=== PATIENT | female | born 1980 | race Caucasian/White ===

== ENCOUNTER → 2016-05-04 | Outpatient (CLI) | payer OTHER ==
[~2016-05-04] MED LIST: AMPH20TA2 PO; CEPH500C2 PO; PRENTAB26 PO; SERT-234 PO
[2016-05-04 16:51] LABS: BASO % 0.2 %; BASO ABS # 0.02 K/uL (0-0.2); COMPLETE YES; EOS % 1.8 %; HEMATOCRIT 44.4 % (37-47); IG% 0.2 %; LYMPH ABS # 2.72 K/uL (1.2-3.4); MEAN CELL VOLUME 85.5 fL (80-100); MEAN CORPUSCULAR HEMOGLOBIN 29.7 pg (25-34); MEAN CORPUSCULAR HGB CONC 34.7 g/dl (32-36); MEAN PLATELET VOLUME 9.1 fL (7.4-10.4); MONO % 7.5 %; NEUT % 59.3 %; PLATELET COUNT 259 K/uL (130-400); RED BLOOD COUNT 5.19 M/uL (4.2-5.4); WHITE BLOOD COUNT 8.77 K/uL (4.8-10.8)
[2016-05-04 18:49] LABS: ALT/SGPT 37 U/L (12-78); AST/SGOT 19 U/L (15-37); BLOOD UREA NITROGEN 8 mg/dl (7-18); BUN/CREATININE RATIO 12.7 (10-20); CARBON DIOXIDE 27 mmol/L (21-32); CHLORIDE 103 mmol/L (98-107); GLUCOSE 75 mg/dl (70-99); MAGNESIUM 1.9 mg/dl (1.8-2.4); POTASSIUM 3.8 mmol/L (3.5-5.1); SODIUM 138 mmol/L (136-145)
[2016-05-04 19:10] LABS: ALB/GLOB RATIO 1.1 (0.9-2); ALKALINE PHOSPHATASE 88 U/L (45-117)
[2016-05-08 16:03] LABS: HERPES SIMPLEX AB IGG-1 0.12; HERPES SIMPLEX AB IGG-2 >5.00
== END | disposition home or self-care (01) ==
LOC: C.LAB1850 15:55
PROVIDERS: ATTEND Obstetrics & Gynecology
DX: Z01.419 Encounter for gynecological examination (general) (routine) without abnormal findings (principal); R53.83 Other fatigue; Z11.3 Encounter for screening for infections with a predominantly sexual mode of transmission

== ENCOUNTER → 2016-05-04 | Outpatient (CLI) | payer OTHER | END | disposition home or self-care (01) | LOC: C.PAPS 09:28 | PROVIDERS: ATTEND Obstetrics & Gynecology | DX: Z01.419 Encounter for gynecological examination (general) (routine) without abnormal findings (principal) ==

== ENCOUNTER → 2017-07-11 | Outpatient (CLI) | payer OTHER ==
[~2017-07-11] MED LIST changes: -PRENTAB26 PO; -SERT-234 PO
--- NOTE | 2017-07-11 14:08 | DIAGNOSTIC IMAGING REPORT ---
C-SPINE ROUTINE 4 OR 5 VIEWS HISTORY: Pain. Neuropathy. R20.0 Arm [id number] COMPARISON: None. FINDINGS: The cervical spine is visualized from C1 through the superior endplate of T1. There is no fracture. No subluxation. Moderate degenerative disc change C5-C7. Mild reactive sclerosis vertebral endplates C5-C6 level. Minimal osteophytic narrowing of the neuroforamina bilaterally at C5-C6 and to a lesser extent C6-C7. Prevertebral soft tissues and the atlantodens interval are intact. IMPRESSION: Mild/moderate degenerative disc change C5-C7. Mild straightening of the cervical curvature. Otherwise negative study. The above report was generated using voice recognition software. It may contain grammatical, syntax or spelling errors. Electronically signed by: Tucker Rivera M.D. 07/11/2017 2:06 PM Dictated Date/Time: 07/11/2017 2:05 PM
== END | disposition home or self-care (01) ==
LOC: C.RAD1850 13:49
PROVIDERS: ATTEND Physician Assistant
DX: R20.0 Anesthesia of skin (principal)

== ENCOUNTER → 2017-08-03 | Outpatient (CLI) | payer OTHER ==
[2017-08-03 09:21] LABS: BASO % 0.5 %; BASO ABS # 0.04 K/uL (0-0.2); EOS % 2.3 %; EOS ABS # 0.17 K/uL (0-0.5); HEMATOCRIT 43.1 % (37-47); HEMOGLOBIN 14.5 g/dL (12.0-16.0); IG# 0.02 K/uL (0.00-0.02); LYMPH % 40.5 %; MEAN CELL VOLUME 81.9 fL (80-100); MEAN CORPUSCULAR HEMOGLOBIN 27.6 pg (25-34); MEAN CORPUSCULAR HGB CONC 33.6 g/dl (32-36); MEAN PLATELET VOLUME 8.8 fL (7.4-10.4); MONO % 7.7 %; MONO ABS # 0.57 K/uL (0.11-0.59); NEUT % 48.7 %; NEUT ABS # 3.61 K/uL (1.4-6.5); PLATELET COUNT 350 K/uL (130-400); RED CELL DISTRIBUTION WIDTH CV 14.4 % (11.5-14.5); RED CELL DISTRIBUTION WIDTH SD 42.8 fL (36.4-46.3); WHITE BLOOD COUNT 7.41 K/uL (4.8-10.8)
[2017-08-03 09:48] LABS: HEMOGLOBIN A1C 5.9 % (4.5-5.6)
[2017-08-03 09:51] LABS: ALT/SGPT 46 U/L (12-78); BLOOD UREA NITROGEN 10 mg/dl (7-18); CALCIUM 8.9 mg/dl (8.5-10.1); CARBON DIOXIDE 24 mmol/L (21-32); CHOLESTEROL 177 mg/dl (0-200); CREATININE 0.76 mg/dl (0.60-1.20); GLUCOSE 100 mg/dl (70-99); POTASSIUM 3.7 mmol/L (3.5-5.1); SODIUM 136 mmol/L (136-145)
[2017-08-03 10:00] LABS: ALKALINE PHOSPHATASE 93 U/L (45-117); AST/SGOT 26 U/L (15-37); LDL CHOLESTEROL CALCULATED 114 mg/dl; TOTAL PROTEIN 7.7 gm/dl (6.4-8.2); TRANSFERRIN 358 mg/dl (200-360)
== END | disposition home or self-care (01) ==
LOC: C.LAB1850 08:40
PROVIDERS: ATTEND Physician Assistant
DX: Z00.00 Encounter for general adult medical examination without abnormal findings (principal); E55.9 Vitamin D deficiency, unspecified; R53.83 Other fatigue

== ENCOUNTER → 2017-11-19 | Day surgery (SDC) | payer OTHER ==
[~2017-11-19] VITALS: Ht 160 cm; Wt 76.8 kg
[~2017-11-19] MED LIST changes: +ASA PO; -CEPH500C2 PO; +CYCL5TAB PO; +LEVO50TA6 PO; +LIDOCAINE HCL 2% 2 ML VIAL (20MG/ML) ONE; +MULT-513 PO; +PROPOFOL IV EMULSION 10 MG/ML 20 ML VIAL ONE; +SERT-234 PO; +SODIUM CHLORIDE 0.9% 500ML 500 ML IV ONE; +TRAZ100T29 PO
[2017-11-19 12:48] VITALS: Ht 160 cm; Wt 76.8 kg
--- NOTE | 2017-11-19 13:00 | Endo History and Physical ---
History & Physical Date of Service: Nov 19, 2017. Chief Complaint: NAUSEA AND VOMITING Referring Physician: MICHAEL KUHN History of Present Illness 37 yo CF who presents for EGD secondary to nausea and vomiting. Past Medical History Anxiety, Reflux Past Surgical History Hx Cardiac Surgery: No Hx Internal Defibrillator: No Hx Pacemaker: No Hx Abdominal Surgery: Yes (GASTRIC BYPASS) Hx of Implantable Prosthesis: No Hx Post-Op Nausea and Vomiting: No Hx Cancer Surgery: No Hx Thoracic Surgery: No Hx Orthopedic: Yes (LT ACL/MCL REPAIR) Hx Urinary Tract Surgery: No Family History Colon CA Social History Smoking Status: Current Every Day Smoker Hx Substance Use: No Hx Alcohol Use: Yes (SOCIALLY) Allergies Coded Allergies: No Known Allergies (Unverified , 11/19/17) Current Medications Reported Home Medications Medications Dose Route/Sig Max Daily Dose Days Date Category Flexeril (Cyclobenzaprine Hcl) 5 Mg Tab 1 Tab PO PRN 30 11/19/17 Reported Trazodone (Trazodone HCl) 100 Mg Tab 100 Mg PO PRN 11/19/17 Reported [Asa] 325 PO RARELY 11/19/17 Reported Mvi With Minerals (Multivitamins/Minerals) Tab 1 Tab PO DAILY 11/19/17 Reported Levothyroxine Sodium 50 Mcg Tab 1 Tab PO DAILY 10/19/17 Reported Zoloft (Sertraline HCl) 100 Mg Tab 150 Mg PO DAILY 10/19/17 Reported Adderall 20MG (Amphetamine-Dextroamphetamine 20MG) 1 Tab Tab 1 Tab PO TID 30 03/04/15 Reported Vital Signs Weight (Kilograms): 76.82 Height (Feet): 5 Height (Inches): 3 Date Time Temp Pulse Resp B/P (MAP) Pulse Ox O2 Delivery O2 Flow Rate FiO2 11/19/17 12:56 36.7 95 20 122/87 (99) 97 Room Air Physical Exam General Appearance: WD/WN, no apparent distress Respiratory/Chest: Auscultation: breath sounds normal Cardiovascular: Heart Auscultation: RRR Abdomen: Bowel Sounds: normal Inspection & Palpation: soft, non-distended, no tenderness, guarding & rebound Assessment and Plan Assessment: 37 yo CF who presents for EGD secondary to nausea and vomiting. Plan: Proceed with EGD.
--- NOTE | 2017-11-19 14:13 | Discharge Instructions ---
Endoscopy Patient Instructions Date / Procedure(s) Performed Nov 19, 2017. EGD Allergy Information Coded Allergies: No Known Allergies (Unverified , 11/19/17) Discharge Date / Findings Nov 19, 2017. Ulcers at Gastrojejunal anastomosis Medication Instructions 1) Prilosec 20mg: Open capsule and empty into applesauce and take by mouth each morning. 2) OK to resume all medications today as prescribed Reported Home Medications Medications Dose Route/Sig Max Daily Dose Days Date Category Flexeril (Cyclobenzaprine Hcl) 5 Mg Tab 1 Tab PO PRN 30 11/19/17 Reported Trazodone (Trazodone HCl) 100 Mg Tab 100 Mg PO PRN 11/19/17 Reported [Asa] 325 PO RARELY 11/19/17 Reported Mvi With Minerals (Multivitamins/Minerals) Tab 1 Tab PO DAILY 11/19/17 Reported Levothyroxine Sodium 50 Mcg Tab 1 Tab PO DAILY 10/19/17 Reported Zoloft (Sertraline HCl) 100 Mg Tab 150 Mg PO DAILY 10/19/17 Reported Adderall 20MG (Amphetamine-Dextroamphetamine 20MG) 1 Tab Tab 1 Tab PO TID 30 03/04/15 Reported Provider Instructions Activity Restrictions - No exercising or heavy lifting for 24 hours. - Do not drink alcohol the day of the procedure. - Do not drive a car or operate machinery until the day after the procedure. - Do not make any important decisions or sign important papers in 24 hours after the procedure. Following Day: - Return to full activity which may include returning to work/school. Diet Start your diet with liquids and light foods (jello, soup, juice, toast). Then eat your usual diet if not nauseated. Treatment For Common After Affects For mild abdominal pain, bloating, or excessive gas: - Rest - Eat lightly - Lie on right side Follow-Up Information Follow-up with MICHAEL KUHN as scheduled Anesthesia Information What You Should Know You have had a procedure that required some medicine to reduce anxiety and discomfort. This treatment is called moderate sedation. After receiving the treatment, you may be sleepy, but you will be able to breathe on your own. The effects of the treatment may last for several hours. Follow these instructions along with Activity/Diet recommendations noted above: * Do NOT do anything where dizziness or clumsiness would be dangerous. * Rest quietly at home today, then you can be up and about tomorrow. * Have a responsible person stay with you the rest of today. * You may have had an I.V. today. If so, you may take the dressing off later today. Recommendations Call your doctor if: * Trouble breathing * Continuous vomiting for more than 24 hours * Temperature above 101 degrees * Severe abdominal pain or bloating * Pain not relieved by pain medicine ordered * There is increased drainage or redness from any incision * A large amount of rectal bleeding greater than 2-3 tablespoons. (If you had a polyp/s removed or have hemorrhoids, a small amount of blood - from the rectum is to be expected.) * You have any unanswered questions or concerns. IN THE EVENT OF A SERIOUS EMERGENCY, GO TO THE NEAREST EMERGENCY ROOM Your discharge instructions were prepared by provider Param Go. Patient Instructions Signature Page Janey Parada Patient (or Guardian) Signature/Date: I have read and understand the instructions given to me by my caregivers. Caregiver/RN/Doctor Signature/Date: The above-named patient and/or guardian has received patient instructions on this date. + Original Patient Signature Page (only) stays with chart. Please make copy for patient.
--- NOTE | 2017-11-19 14:25 | GI REPORT ---
Patient Name: Janey Parada Procedure Date: 11/19/2017 1:36 PM Date of : 1980 Admit Type: Outpatient Age: 37 Gender: Female Attending MD: Param Go DO Procedure: Upper GI endoscopy Providers: Param Go DO Referring MD: Danielle Kong Indications: Nausea with vomiting Medicines: Monitored Anesthesia Care Complications: No immediate complications. Estimated Blood Loss: Estimated blood loss: none. Procedure: Pre-Anesthesia Assessment: - Prior to the procedure, a History and Physical was performed, and patient medications and allergies were reviewed. The patient's tolerance of previous anesthesia was also reviewed. The risks and benefits of the procedure and the sedation options and risks were discussed with the patient. All questions were answered, and informed consent was obtained. Prior Anticoagulants: The patient has taken no previous anticoagulant or antiplatelet agents. ASA Grade Assessment: II - A patient with mild systemic disease. After reviewing the risks and benefits, the patient was deemed in satisfactory condition to undergo the procedure. After obtaining informed consent, the endoscope was passed under direct vision. Throughout the procedure, the patient's blood pressure, pulse, and oxygen saturations were monitored continuously. The scope was introduced through the mouth, and advanced to the second part of duodenum. The upper GI endoscopy was accomplished without difficulty. The patient tolerated the procedure well. Findings: The esophagus was normal. Evidence of a Ann-en-Y gastrojejunostomy was found. The gastrojejunal anastomosis was characterized by ulceration. This was traversed. The [id number] limb was not examined as it could not be found. Biopsies were taken with a cold forceps for histology. The examined jejunum was normal. Impression: - Normal esophagus. - Ann-en-Y gastrojejunostomy with gastrojejunal anastomosis characterized by ulceration. Biopsied. - Normal examined jejunum. Recommendation: - Resume previous diet. - Await pathology results. - Start Prilosec 20mg: Take 1 capsule and empty contents into applesauce and take by mouth daily. - Return to primary care physician as previously scheduled. Param Go DO 11/19/2017 2:24:44 PM This report has been signed electronically. Note Initiated On: 11/19/2017 1:36 PM Number of Addenda: 0 I attest to the content of the Intraoperative Record and orders documented therein, exceptions below {[id number]}
--- NOTE | 2017-11-19 14:34 | Anesthesiology Progress Note ---
Anesthesia Post Op Note Date & Time Nov 19, 2017 at 14:34 Vital Signs Pain Intensity: 0 Vital Signs Past 12 Hours Date Time Temp Pulse Resp B/P (MAP) Pulse Ox O2 Delivery O2 Flow Rate FiO2 11/19/17 14:22 82 20 141/95 (110) 97 Room Air 11/19/17 14:07 92 18 127/75 (92) 95 Room Air 11/19/17 12:56 36.7 95 20 122/87 (99) 97 Room Air Notes Mental Status: alert / awake / arousable, participated in evaluation Pt Amnestic to Procedure: Yes Nausea / Vomiting: adequately controlled Pain: adequately controlled Airway Patency, RR, SpO2: stable & adequate BP & HR: stable & adequate Hydration State: stable & adequate Anesthetic Complications: no major complications apparent
[2017-11-19 14:37] VITALS: BP 116/76; PULSE 82; O2SAT 97
== END | disposition home or self-care (01) ==
LOC: C.GI 11:36
PROVIDERS: ATTEND Internal Medicine
DX: R11.2 Nausea with vomiting, unspecified (principal); K28.7 Chronic gastrojejunal ulcer without hemorrhage or perforation; K21.9 Gastro-esophageal reflux disease without esophagitis; F41.9 Anxiety disorder, unspecified; Z98.84 Bariatric surgery status; Z80.0 Family history of malignant neoplasm of digestive organs; F17.200 Nicotine dependence, unspecified, uncomplicated; F32.9 Major depressive disorder, single episode, unspecified; Z93.1 Gastrostomy status

== ENCOUNTER 2023-11-02 10:44 | Inpatient (IN) ==
--- NOTE | 2023-11-02 12:19 | Emergency Department Note ---
Impression & Plan Psychosis, Suicidal ideation ED Provider Note ED Provider Note NAME: ORION BAIN AGE:43 SEX: Female : 1980 ARRIVES VIA: Private vehicle INFORMANT: Family ED PROVIDER(s): Leah Molina DO CHIEF COMPLAINT: Mental health evaluation HPI: This is a 43-year-old male presents emergency department with family due to concern for mental health evaluation. Family reports she has not slept in 3 days, will laugh inappropriately, and they are concerned she may be abusing Adderall she is prescribed for her ADD. They states she also has a history of marijuana use and occasional alcohol use. Patient with a long history of ADD, borderline personality disorder, anxiety and depression per father. He states she has intermittently been aggressive and will yell. No prior suicide attempt. On my evaluation here patient refusing to answer questions, is lying in bed with her eyes closed but does not appear to be asleep. PAST MEDICAL HISTORY:See Below PAST SURGICAL HISTORY:See Below FAMILY HISTORY:See Below SOCIAL HISTORY:See Below HOME MEDICATIONS:See Below ALLERGIES:See Below VITALS:See Below PHYSICAL EXAMINATION: GENERAL: alert, well nourished, no distress, non-toxic EYE EXAM: normal conjunctiva, PERRL and EOM's grossly intact NECK: supple, no nuchal rigidity, no adenopathy, non-tender LUNGS: Clear to auscultation. Normal chest wall mechanics, no w/r/r HEART: no murmurs, S1 normal and S2 normal ABDOMEN: abdomen soft, non-tender, normo-active bowel sounds, no masses, no rebound or guarding. SKIN: no rashes, petechiae, orbruising UPPER EXTREMITIES: upper extremities are grossly normal. FROM, nml pulses b/l. LOWER EXTREMITIES: No pitting edema. FROM, nml pulses b/l. NEURO EXAM: Normal sensorium, cranial nerves II-XII grossly intact, normal speech, no facial droop,nogross weakness of arms, no gross weakness of legs. Gross sensation intact. No ataxia. Vital Signs: reviewed and remarkable Differential Diagnosis: mood disorder, suicidal ideation, anxiety, depression, substance abuse, toxidrome, infection, hypoglycemia, electrolyte abnormalities, ICH as well as others were considered. MEDICAL DECISION MAKING: This is a 43 yo with a long history of mental illness. She refused to speak with me. She would intermittently speak with case jcarlos. Father at bedside provided much of the history. Patient with no insight and poor reality testing. She is responding to internal stimuli and admits to suicidal ideation. Labs and urine collected and sent per protocol. She was evaluated by case jcarlos and 302 initiated and upheld by me. Consultation(s): 1550: 302 signed by me. ER Treatment Provided: See below Diagnostics Interpreted By Me: -Laboratory studies: As stated above and show below. Triage Nursing Note Reviewed Prior/Outside Records Reviewed Past Med/Surg History Problem List (Updated 11/03/23 @ 23:50 by Leah Molina, ) Suicidal ideation (Acute) Psychosis (Acute) Insect bite Primary hypertension NAFLD (nonalcoholic fatty liver disease) Cigarette nicotine dependence Prediabetes Obesity (BMI 30.0-34.9) Anastomotic ulcer Iron (Fe) deficiency anemia History of gastric bypass Anxiety and depression (Chronic) GERD (gastroesophageal reflux disease) ADHD (Chronic) Medical History Diverticulosis Osteoarthritis Kidney stones History of gastric ulcer Surgical History History of colonoscopy History of dilatation and curettage History of repair of ACL History of esophagogastroduodenoscopy (EGD) History of wisdom tooth extraction Family History Mother Family history of diabetes mellitus Grandfather (Maternal) Family hx of colon cancer Other No family history of adverse response to anesthesia Denies family history of Ovarian cancer Breast cancer Colorectal cancer Social History Smoking Status: Current every day smoker Tobacco Type: Cigarettes packs per day: 1; Cigarettes Per Day: 20 a day; Second Hand Exposure: No; Do You Dip or Chew Tobacco: No; Hx Alcohol Use: Yes Alcohol type: wine Hx Substance Use: No Preferred Language: Occitan Communication Ability: Effective [place] Sewer Required: No Beliefs That Will Affect Care: None Current Living Situation: Alone Feels Safe at Home: No Is there a partner from a previous relationship who is making you feel unsafe now?: No Gender Identity: Female Assistive Devices: Contacts and Glasses Allergies Allergies Allergy/AdvReac Type Severity Reaction Status Date / Time prednisone Allergy Intermediate Vomiting Verified 10/04/23 15:11 Home Meds Home Medications Medication Instructions Recorded Confirmed dextroamphetamine-amphetamine ER 40 mg PO DAILY 11/03/23 11/03/23 20 mg 24hr capsule,extend release omeprazole 20 mg capsule,delayed 20 mg PO DAILY 11/03/23 11/03/23 release sertraline 100 mg tablet 200 mg PO DAILY 11/03/23 11/03/23 Previous Rx's Medication Instructions Recorded albuterol sulfate 90 mcg/actuation 2 inh inhalation 6XD PRN shortness 10/15/23 aerosol inhaler of breath or wheezing #8.5 grams Results & Data (ED) Vital Signs Vital Signs - 24 hr 11/02/23 11:10 Temperature 37.7 C H Temperature Source Oral Pulse Rate 123 H Respiratory Rate 18 Respiratory Effort / Characteristics Non-Labored Spontaneous Respiratory Depth Normal Respiratory Pattern Regular Blood Pressure 160/88 H Blood Pressure Mean 112 Pulse Oximetry 94 Oxygen Delivery Method Room Air Sepsis Recent Fever Within 48 Hours No Sepsis New/Unexplained Change in Mental Status No Sepsis Action Taken by Nursing No Action Required Laboratory Data 11/02/23 21:10 11/02/23 13:00 Lab Results 11/02/23 11/02/23 11/02/23 Range/Units 13:00 16:18 21:10 WBC Cancelled 13.92 H RBC Cancelled 5.08 Hgb Cancelled 12.9 Hct Cancelled 39.7 MCV Cancelled 78.1 L MCH Cancelled 25.4 MCHC Cancelled 32.5 RDW Std Deviation Cancelled 45.0 RDW Coeff of Marlon Cancelled 16.0 H Plt Count Cancelled 380 MPV Cancelled 9.4 Immature Gran % (Auto) Cancelled 0.4 Neut % (Auto) Cancelled 68.9 Lymph % (Auto) Cancelled 22.5 [place] % (Auto) Cancelled 7.3 Eos % (Auto) Cancelled 0.6 Baso % (Auto) Cancelled 0.3 Neut # (Auto) Cancelled 9.60 H Lymph # (Auto) Cancelled 3.13 [place] # (Auto) Cancelled 1.02 H Eos # (Auto) Cancelled 0.08 Baso # (Auto) Cancelled 0.04 Immature Gran # (Auto) Cancelled 0.05 Absolute Nucleated RBC Cancelled Nucleated RBC % (auto) Cancelled Neutrophils % (Manual) Cancelled Band Neutrophils % Cancelled Lymphocytes % (Manual) Cancelled Prolymphocyte % Cancelled Reactive Lymphs % (Man) Cancelled Monocytes % (Manual) Cancelled Eosinophils % (Manual) Cancelled Basophils % (Manual) Cancelled Metamyelocytes % (Man) Cancelled Myelocytes % (Man) Cancelled Promyelocytes % (Man) Cancelled Blast Cells % (Manual) Cancelled Plasma Cell % (Manual) Cancelled Other Cells % Cancelled Nucleated RBC % Cancelled Neutrophils # (Manual) Cancelled Band Neutrophils # Cancelled Total Absolute Neuts Cancelled Lymphocytes # (Manual) Cancelled Prolymphocyte # Cancelled Reactive Lymphs # Cancelled Total Abs Lymphocytes Cancelled Monocytes # (Manual) Cancelled Eosinophils # (Manual) Cancelled Basophils # (Manual) Cancelled Metamyelocytes # (Man) Cancelled Myelocytes # (Manual) Cancelled Promyelocytes # (Man) Cancelled Blast Cells # (Man) Cancelled Plasma Cell # (Manual) Cancelled Other Cells # Cancelled Nucleated RBCs # (Man) Cancelled Hypersegmented Neuts Cancelled Hyposegmented Neuts Cancelled Hypogranular Neuts Cancelled Large Granular Lymphs Cancelled # Lrg Granular Lymphs Cancelled Hairy Cells Cancelled Smudge Cells Cancelled Toxic Granulation Cancelled Toxic Vacuolation Cancelled Dohle Bodies Cancelled Ness Rods Cancelled Platelet Estimate Cancelled Hypogranular Platelets Cancelled Giant Platelets Cancelled Platelet Satelliting Cancelled RBC Morphology Cancelled Polychromasia Cancelled Hypochromasia Cancelled Poikilocytosis Cancelled Basophilic Stippling Cancelled Anisocytosis Cancelled Microcytosis Cancelled Macrocytosis Cancelled Spherocytes Cancelled Pappenheimer Bodies Cancelled Sickle Cells Cancelled Target Cells Cancelled Tear Drop Cells Cancelled Ovalocytes Cancelled Stomatocytes Cancelled [place] Bodies Cancelled Echinocytes Cancelled Acanthocytes (Spur) Cancelled Rouleaux Cancelled RBC Agglutinates Cancelled Schistocytes Cancelled Sezary Cell Cancelled Sodium 137 (136-145) mmol/L Potassium 3.7 (3.5-5.1) mmol/L Chloride 108 H (98-107) mmol/L Carbon Dioxide 19 L (21-32) mmol/L Anion Gap 10 (3-11) BUN 7 (6-23) mg/dl Creatinine 0.46 L (0.6-1.2) mg/dl Est Cr Clr Drug Dosing Not Reportable Est GFR ( Amer) 143.2 ml/min Est GFR (Non-Af Amer) 123.6 ml/min BUN/Creatinine Ratio 15.2 (10-20) Glucose 83 (70-99(Fasting)) mg/dl Calcium 9.4 (8.6-10.3) mg/dl Total Bilirubin 0.5 (0.2-1.0) mg/dl AST 16 (13-39) U/L ALT 24 (7-52) U/L Alkaline Phosphatase 77 (34-104) U/L Total Protein 7.6 (6.0-8.3) gm/dl Albumin 4.3 (3.4-5.0) gm/dl Globulin 3.3 (2.5-4.0) gm/dl Albumin/Globulin Ratio 1.3 (0.9-2) TSH 1.178 (0.300-4.500) uIu/ml HCG, Qual Negative (Negative) Urine Color Yellow Urine Appearance Clear (Clear) Urine pH 6.5 (4.5-7.5) Ur Specific [place] 1.013 (1.000-1.030) Urine Protein Trace H (Negative) Urine Glucose (UA) Negative (Negative) Urine Ketones 3+ H (Negative) Urine Blood 3+ H (Negative) Urine Nitrite Negative (Negative) Urine Bilirubin Negative (Negative) Urine Urobilinogen Negative (Negative) Ur Leukocyte Esterase Trace H (Negative) Urine WBC (Auto) 0-5 (0-5) /hpf Urine RBC (Auto) 11-20 H (0-2) /hpf U Hyaline Cast (Auto) 0-2 (0-2) /lpf U Epithel Cells (Auto) 3-5 H (0-2) /hpf Urine Bacteria (Auto) None Seen (None Seen) Salicylates < 3.0 L (3.0-30) mg/dl Urine Opiates Screen Neg (Neg) Ur Methadone, Qual Neg (Neg) Urine Fentanyl Screen Neg (Neg) Acetaminophen < 3 L (10-30) ug/ml Urine Barbiturates Neg (Neg) Ur Phencyclidine (PCP) Neg (Neg) U Amphetamin/Meth Scrn Neg (Neg) MDMA (Ecstasy) Screen Neg (Neg) U Benzodiazepines Scrn Neg (Neg) Ur Cocaine Metabolite Neg (Neg) U Marijuana (THC) Screen Pos H (Neg) Ethyl Alcohol mg/dL < 10.0 (<10.0) mg/dl SARS-CoV-2, RNA, NAAT (NEGATIVE) Blood Parasites ID Cancelled 11/02/23 Range/Units Unknown WBC RBC Hgb Hct MCV MCH MCHC RDW Std Deviation RDW Coeff of Marlon Plt Count MPV Immature Gran % (Auto) Neut % (Auto) Lymph % (Auto) [place] % (Auto) Eos % (Auto) Baso % (Auto) Neut # (Auto) Lymph # (Auto) [place] # (Auto) Eos # (Auto) Baso # (Auto) Immature Gran # (Auto) Absolute Nucleated RBC Nucleated RBC % (auto) Neutrophils % (Manual) Band Neutrophils % Lymphocytes % (Manual) Prolymphocyte % Reactive Lymphs % (Man) Monocytes % (Manual) Eosinophils % (Manual) Basophils % (Manual) Metamyelocytes % (Man) Myelocytes % (Man) Promyelocytes % (Man) Blast Cells % (Manual) Plasma Cell % (Manual) Other Cells % Nucleated RBC % Neutrophils # (Manual) Band Neutrophils # Total Absolute Neuts Lymphocytes # (Manual) Prolymphocyte # Reactive Lymphs # Total Abs Lymphocytes Monocytes # (Manual) Eosinophils # (Manual) Basophils # (Manual) Metamyelocytes # (Man) Myelocytes # (Manual) Promyelocytes # (Man) Blast Cells # (Man) Plasma Cell # (Manual) Other Cells # Nucleated RBCs # (Man) Hypersegmented Neuts Hyposegmented Neuts Hypogranular Neuts Large Granular Lymphs # Lrg Granular Lymphs Hairy Cells Smudge Cells Toxic Granulation Toxic Vacuolation Dohle Bodies Ness Rods Platelet Estimate Hypogranular Platelets Giant Platelets Platelet Satelliting RBC Morphology Polychromasia Hypochromasia Poikilocytosis Basophilic Stippling Anisocytosis Microcytosis Macrocytosis Spherocytes Pappenheimer Bodies Sickle Cells Target Cells Tear Drop Cells Ovalocytes Stomatocytes [place] Bodies Echinocytes Acanthocytes (Spur) Rouleaux RBC Agglutinates Schistocytes Sezary Cell Sodium (136-145) mmol/L Potassium (3.5-5.1) mmol/L Chloride (98-107) mmol/L Carbon Dioxide (21-32) mmol/L Anion Gap (3-11) BUN (6-23) mg/dl Creatinine (0.6-1.2) mg/dl Est Cr Clr Drug Dosing Est GFR ( Amer) ml/min Est GFR (Non-Af Amer) ml/min BUN/Creatinine Ratio (10-20) Glucose (70-99(Fasting)) mg/dl Calcium (8.6-10.3) mg/dl Total Bilirubin (0.2-1.0) mg/dl AST (13-39) U/L ALT (7-52) U/L Alkaline Phosphatase (34-104) U/L Total Protein (6.0-8.3) gm/dl Albumin (3.4-5.0) gm/dl Globulin (2.5-4.0) gm/dl Albumin/Globulin Ratio (0.9-2) TSH (0.300-4.500) uIu/ml HCG, Qual (Negative) Urine Color Urine Appearance (Clear) Urine pH (4.5-7.5) Ur Specific [place] (1.000-1.030) Urine Protein (Negative) Urine Glucose (UA) (Negative) Urine Ketones (Negative) Urine Blood (Negative) Urine Nitrite (Negative) Urine Bilirubin (Negative) Urine Urobilinogen (Negative) Ur Leukocyte Esterase (Negative) Urine WBC (Auto) (0-5) /hpf Urine RBC (Auto) (0-2) /hpf U Hyaline Cast (Auto) (0-2) /lpf U Epithel Cells (Auto) (0-2) /hpf Urine Bacteria (Auto) (None Seen) Salicylates (3.0-30) mg/dl Urine Opiates Screen (Neg) Ur Methadone, Qual (Neg) Urine Fentanyl Screen (Neg) Acetaminophen (10-30) ug/ml Urine Barbiturates (Neg) Ur Phencyclidine (PCP) (Neg) U Amphetamin/Meth Scrn (Neg) MDMA (Ecstasy) Screen (Neg) U Benzodiazepines Scrn (Neg) Ur Cocaine Metabolite (Neg) U Marijuana (THC) Screen (Neg) Ethyl Alcohol mg/dL (<10.0) mg/dl SARS-CoV-2, RNA, NAAT NEGATIVE (NEGATIVE) Blood Parasites ID Administered Medications Hydroxyzine HCl (Hydroxyzine Hcl 25 Mg Tab) 50 mg PO HSZ PRN PRN Reason: Insomnia Stop: 12/03/23 02:07 Last Admin: 11/03/23 21:23 Dose: 50 mg Documented By: KIA Nicotine (Nicotine 21 Mg/24 Hr Tdsy) 1 patch TD QAM [facility] Stop: 12/03/23 16:44 Last Admin: 11/03/23 16:45 Dose: 1 patch Documented By: KIA Sertraline HCl (Sertraline Hcl 100 Mg Tablet) 100 mg PO BID MELLISSA Stop: 12/03/23 20:59 Last Admin: 11/03/23 21:18 Dose: 100 mg Documented By: KIA Discontinued Medications Lorazepam (Lorazepam 1 Mg/1 Ml Syr Ed Inj Use) 2 mg IM ONE STA Stop: 11/02/23 15:00 Last Admin: 11/02/23 15:03 Dose: 2 mg Documented By: MIKE Lorazepam (Lorazepam 1 Mg Tab) 2 mg PO Q8 PRN PRN Reason: Anxiety Stop: 12/03/23 02:12 Last Admin: 11/03/23 08:25 Dose: 2 mg Documented By: JOAQUIN Sertraline HCl (Sertraline Hcl 100 Mg Tablet) 200 mg PO QAM [facility] Stop: 12/03/23 08:59 Last Admin: 11/03/23 19:23 Dose: Not Given Documented By: KIA Sertraline HCl (Sertraline Hcl 100 Mg Tablet) 100 mg PO BID [facility] Stop: 12/04/23 08:59 Last Admin: 11/03/23 14:27 Dose: 100 mg Documented By: JOAQUIN Discharge Plan Visit Data Chief Complaint: Mental Health Evaluation Stated Complaint: E ED Provider: Juan Pablo Amaral Discharge Problem: Psychosis, Suicidal ideation Patient Disposition: Home - Self-Care Discharge Instructions Interventions: ED Discharge Assessment Last Done: 11/03/23 01:31
[2023-11-02 13:34] LABS: Albumin Level 4.3 gm/dl (3.4-5.0); Anion Gap 10 (3-11); Bilirubin,Total 0.5 mg/dl (0.2-1.0); Calcium 9.4 mg/dl (8.6-10.3); Carbon Dioxide 19 mmol/L (21-32); Chloride 108 mmol/L (98-107); Potassium 3.7 mmol/L (3.5-5.1); Sodium 137 mmol/L (136-145)
[2023-11-02 13:35] LABS: Acetaminophen < 3 ug/ml (10-30); Salicylate < 3.0 mg/dl (3.0-30)
[2023-11-02 13:36] LABS: Pregnancy Test, Serum Negative (Negative)
[2023-11-02 13:40] LABS: Alanine Aminotransferase 24 U/L (7-52); Albumin Globulin Ratio 1.3 (0.9-2); Alkaline Phosphatase 77 U/L (34-104); Aspartate Aminotransferase 16 U/L (13-39); BUN Creatinine Ratio 15.2 (10-20); Blood Urea Nitrogen 7 mg/dl (6-23); Est GFR (African American) 143.2 ml/min; Est GFR (Non-African American) 123.6 ml/min; Globulin 3.3 gm/dl (2.5-4.0); Glucose 83 mg/dl (70-99(Fasting)); Total Protein 7.6 gm/dl (6.0-8.3)
[2023-11-02 13:52] LABS: Thyroid Stimulating Hormone 1.178 uIu/ml (0.300-4.500)
[2023-11-02] MEDS: LORazepam 1 MG/1 ML SYR ED Inj Use IM STA (15:03)
[2023-11-02 16:47] LABS: Appearance Urine Clear (Clear); Bacteria Urine Automated None Seen (None Seen); Bilirubin Urine Negative (Negative); Blood Urine 3+ (Negative); Cast Urine Automated 0-2 /lpf (0-2); Color Urine Yellow; Glucose Urine UA Negative (Negative); Ketones Urine 3+ (Negative); Leukocyte Esterase Urine Trace (Negative); Nitrite Urine Negative (Negative); Protein Urine Trace (Negative); Specific Gravity Urine 1.013 (1.000-1.030); Urobilinogen Urine Negative (Negative); WBC Urine Automated 0-5 /hpf (0-5); pH Urine 6.5 (4.5-7.5)
[2023-11-02 17:06] LABS: Amphetamines+Metham, Urine Neg (Neg); Barbiturates, Urine Neg (Neg); Benzodiazepine, Urine Neg (Neg); Cocaine, Urine Neg (Neg); Fentanyl, Urine Neg (Neg); MDMA (Ecstacy), Urine Neg (Neg); Marijuana, Urine Pos (Neg); Methadone, Urine Neg (Neg); Opiate, Urine Neg (Neg); Phencyclidine, Urine Neg (Neg)
[2023-11-02 21:30] LABS: Basophils # (auto) 0.04 K/uL (0.00-0.20); Basophils % (auto) 0.3 %; Eosinophils # (auto) 0.08 K/uL (0.00-0.50); Eosinophils % (auto) 0.6 %; Hematocrit (blood only) 39.7 % (37.0-47.0); Hemoglobin 12.9 g/dl (12.0-16.0); Immature Granulocytes # (auto) 0.05 K/uL (0.01-0.20); Immature Granulocytes % (auto) 0.4 %; Lymphocytes # (auto) 3.13 K/uL (1.20-3.40); Lymphocytes % (auto) 22.5 %; Mean Corpuscular Hemoglobin 25.4 pg (25.0-34.0); Mean Corpuscular Hgb Conc 32.5 g/dL (32.0-36.0); Mean Corpuscular Volume 78.1 fL (80.0-100.0); Mean Platelet Volume 9.4 fL (9.4-12.4); Monocytes # (auto) 1.02 K/uL (0.11-0.59); Monocytes % (auto) 7.3 %; Neutrophils % (auto) 68.9 %; Platelet Count 380 K/uL (130-400); Red Blood Count 5.08 M/uL (4.20-5.40); White Blood Count 13.92 K/ul (4.8-10.8)
--- NOTE | 2023-11-02 21:32 | Emergency Department Note ---
ED Visit Note Received this patient in signout from Dr. Molina. Patient here on 302 with findings concerning for psychosis. Bed search has been initiated. See Dr. Simmons's notes for full details. Patient accepted to [facility] [address] for further inpatient care. .
[2023-11-03] MEDS ORDERED: MAGNESIUM HYDROXIDE SUSP 30 ML UDC PO PRN (02:08)
[2023-11-03] MEDS ORDERED: ACETAMINOPHEN 325 MG TAB PO PRN (02:08)
[2023-11-03] MEDS ORDERED: ALUMINUM/MAGNESIUM SUSP 30 ML UDC PO PRN (02:08)
[2023-11-03] MEDS ORDERED: SODIUM CHLORIDE 0.65% NA SOLN 45 ML (OCEAN) PRN (02:08)
[2023-11-03] MEDS ORDERED: LORazepam 2 MG/1 ML VIAL IM PRN (02:16)
[2023-11-03] MEDS: LORazepam 1 MG TAB PO PRN (08:25)
[2023-11-03] MEDS ORDERED: SERTRALINE HCL 100 MG TABLET PO SCH (09:00)
[2023-11-03] MEDS ORDERED: LORazepam 1 MG TAB PO PRN (11:54)
--- NOTE | 2023-11-03 12:10 | History & Physical ---
Date of Service November 03, 2023 Impression / Recommendations Impression ORION BAIN is a 43-year-old F who currently lives alone, has a history of ADD, and was admitted on 11/03/23 00:56 on a 302 involuntary commitment for suicidal ideation. Patient presents in acute distress in context of escalating social stressors with family. Recent lack of sleep and anxiety was possibly contributed by Adderall use. suspicious for borderline personality disorder given history of neglect and current mood lability and positive screening of cluster B symptoms. Patient was a limited historian due to anxiety and we will continue to clarify about past mood and psychotic episodes. Labs reviewed and WBC elevated likely due to reactive leukocytosis. Plan to continue home Zoloft and to hold home Adderall. Overall, I spent a total of 60 minutes with this case including review of chart records, nursing report, review of lab work, direct evaluation of the patient at bedside, counseling the patient, orders, administering screening instrument and documentation in the electronic health record. (1) Borderline personality disorder: (2) Depression: (3) Difficulty concentrating: Plan 11/03/2023: Continue home sertraline Hold home adderall Lorazepam PRN adjusted to 1mg Q6hr PRN for anxiety [place] Screening instrument for Borderline PD Inventory Assets Strengths: family support, financial resources Needs: insight into condition, IOP Suicide Risk Level Suicide Risk Level: Moderate (q15 min suicide checks) Risk Factors Assessment Male: No : Yes Do You Have Access To A Gun?: No Health Problems: Yes Mental Health Diagnoses: Yes Substance Use Disorders: No Previous Attempt: Yes Family History of Suicide: No Previous Psychiatric Hospitalization: Yes Hopelessness: No Protective Factors Assessment Lutheran Beliefs: No : No Responsible for Young Children: No Employed: No Stable Relationships: No Supportive Family: Yes Good Rapport with Provider: Yes Absence of Any Risk Factors Above: No Psychiatric History Identifying Data ORION BAIN is a 43-year-old F who currently lives alone, has a history of ADD, and was admitted on 11/03/23 00:56 on a 302 involuntary commitment for suicidal ideation. Chief Complaint "Feels trapped" History of Present Illness Patient reports living by herself in a house her parents bought. Complains that her father visits daily and is very controlling. reports that she "feels trapped". Complains of intense emotions and is labile through the conversation. Says her family refuses to engage in family counseling to resolve problems. Complains that she has always been an outcast in the family and been neglected. She denies current SI. Complains of past depressive episodes with poor sleep, low mood, fair energy. Has difficulty answering other questions about past depressive episodes and we will revisit. Reports past diagnoses of "depression/trauma and ". Reports having nightmares in the past and wakes up distressed. Reports having a difficult childhood where she was neglected compared to her 2 brothers and was often told she was fat and unattractive by family. Denies physical or sexual abuse. Reports brother that has depression and got a nerve stimulator. Reports social alcohol and edible marijuana use; denies regular use. Patient reports she does not like taking the Adderall and she feels better off of it right now. Collateral from recent documentation indicates family had concerned patient has recent lack of sleep and was presenting inappropriate laughter. Patient completed screening instrument for borderline personality disorder and reported having troubled relationships, problems with impulsivity, intense moods, extreme feelings of anger, distrust for other people, chronic feelings of emptiness, loss of identity, and desperate efforts to avoid feeling abandoned. Past Psychiatric History Do You Have Access To A Gun?: No History of Previous Suicide Attempt: No Allergies Allergy/AdvReac Type Severity Reaction Status Date / Time prednisone Allergy Intermediate Vomiting Verified 10/04/23 15:11 Home Medications Medication Instructions Recorded Confirmed Type albuterol sulfate 90 mcg/actuation 2 inh inhalation 6XD PRN shortness 10/15/23 11/02/23 Rx aerosol inhaler of breath or wheezing #8.5 grams dextroamphetamine-amphetamine ER 40 mg PO DAILY 11/03/23 11/03/23 History 20 mg 24hr capsule,extend release omeprazole 20 mg capsule,delayed 20 mg PO DAILY 11/03/23 11/03/23 History release sertraline 100 mg tablet 200 mg PO DAILY 11/03/23 11/03/23 History Alcohol History Hx of Alcohol Use Over the Past 12 Months: Yes (1 beer monthly or less) AUDIT Total Score: 1 Smoking Use Have You Smoked or Used Tobacco Products in the Last 30 Days: Yes tobacco type: cigarettes Smoking Status: Current every day smoker Smoking packs per day: 1 Substance History Hx of Prescription Med Misuse Over the Past 12 Months: Yes (Adderall misuse suspected) Hx of Over the Counter Med Misuse Over the Past 12 Months: No Hx of Inhalent Misuse Over the Past 12 Months: No Hx of Organic Substance Use Over the Past 12 Months: Yes (Marjuana gummies) Hx of Illegal Substances/Street Drug Use Over Past 12 Months: No Problems as a Result of Past Substance Use: None Identified Personal History Living Arrangements: Home Beliefs That Will Affect Care: None Patient History Medical History Diverticulosis Osteoarthritis Kidney stones History of gastric ulcer Surgical History History of colonoscopy History of dilatation and curettage History of repair of ACL History of esophagogastroduodenoscopy (EGD) History of wisdom tooth extraction Family History Mother Family history of diabetes mellitus Grandfather (Maternal) Family hx of colon cancer Other No family history of adverse response to anesthesia Denies family history of Ovarian cancer Breast cancer Colorectal cancer Social History Smoking Status: Current every day smoker Tobacco Type: Cigarettes packs per day: 1; Cigarettes Per Day: 20 a day; Second Hand Exposure: No; Do You Dip or Chew Tobacco: No; Hx Alcohol Use: Yes Alcohol type: wine Hx Substance Use: No Preferred Language: Maltese Communication Ability: Effective Cafe Helper Required: No Beliefs That Will Affect Care: None Current Living Situation: Alone Feels Safe at Home: No Is there a partner from a previous relationship who is making you feel unsafe now?: No Gender Identity: Female Assistive Devices: Contacts and Glasses Physical Exam Mental Examination: Appearance: Disheveled Eye Contact: Direct Eye Contact Motor Behavior: Restless Speech: Loud Mood: Euphoric and Tearful Affect: Labile Thought Process: Circumstantial Thought Content: Intact Hallucinations: None Insight: Poor Judgement: Poor Vital Signs (Past 24 Hours): Last Vital Signs Temp 37.4 C 11/03/23 06:40 Pulse 94 H 11/03/23 06:41 Resp 18 11/03/23 06:40 BP 148/81 H 11/03/23 06:41 Pulse Ox 99 11/03/23 03:56 O2 Del Method Room Air 11/03/23 03:56 Results & Data ([facility]) Laboratory Results Laboratory Results - last 24 hr 11/02/23 11/02/23 11/02/23 13:00 16:18 21:10 WBC Cancelled 13.92 H RBC Cancelled 5.08 Hgb Cancelled 12.9 Hct Cancelled 39.7 MCV Cancelled 78.1 L MCH Cancelled 25.4 MCHC Cancelled 32.5 RDW Std Deviation Cancelled 45.0 RDW Coeff of Marlon Cancelled 16.0 H Plt Count Cancelled 380 MPV Cancelled 9.4 Immature Gran % (Auto) Cancelled 0.4 Neut % (Auto) Cancelled 68.9 Lymph % (Auto) Cancelled 22.5 [place] % (Auto) Cancelled 7.3 Eos % (Auto) Cancelled 0.6 Baso % (Auto) Cancelled 0.3 Neut # (Auto) Cancelled 9.60 H Lymph # (Auto) Cancelled 3.13 [place] # (Auto) Cancelled 1.02 H Eos # (Auto) Cancelled 0.08 Baso # (Auto) Cancelled 0.04 Immature Gran # (Auto) Cancelled 0.05 Absolute Nucleated RBC Cancelled Nucleated RBC % (auto) Cancelled Neutrophils % (Manual) Cancelled Band Neutrophils % Cancelled Lymphocytes % (Manual) Cancelled Prolymphocyte % Cancelled Reactive Lymphs % (Man) Cancelled Monocytes % (Manual) Cancelled Eosinophils % (Manual) Cancelled Basophils % (Manual) Cancelled Metamyelocytes % (Man) Cancelled Myelocytes % (Man) Cancelled Promyelocytes % (Man) Cancelled Blast Cells % (Manual) Cancelled Plasma Cell % (Manual) Cancelled Other Cells % Cancelled Nucleated RBC % Cancelled Neutrophils # (Manual) Cancelled Band Neutrophils # Cancelled Total Absolute Neuts Cancelled Lymphocytes # (Manual) Cancelled Prolymphocyte # Cancelled Reactive Lymphs # Cancelled Total Abs Lymphocytes Cancelled Monocytes # (Manual) Cancelled Eosinophils # (Manual) Cancelled Basophils # (Manual) Cancelled Metamyelocytes # (Man) Cancelled Myelocytes # (Manual) Cancelled Promyelocytes # (Man) Cancelled Blast Cells # (Man) Cancelled Plasma Cell # (Manual) Cancelled Other Cells # Cancelled Nucleated RBCs # (Man) Cancelled Hypersegmented Neuts Cancelled Hyposegmented Neuts Cancelled Hypogranular Neuts Cancelled Large Granular Lymphs Cancelled # Lrg Granular Lymphs Cancelled Hairy Cells Cancelled Smudge Cells Cancelled Toxic Granulation Cancelled Toxic Vacuolation Cancelled Dohle Bodies Cancelled Ness Rods Cancelled Platelet Estimate Cancelled Hypogranular Platelets Cancelled Giant Platelets Cancelled Platelet Satelliting Cancelled RBC Morphology Cancelled Polychromasia Cancelled Hypochromasia Cancelled Poikilocytosis Cancelled Basophilic Stippling Cancelled Anisocytosis Cancelled Microcytosis Cancelled Macrocytosis Cancelled Spherocytes Cancelled Pappenheimer Bodies Cancelled Sickle Cells Cancelled Target Cells Cancelled Tear Drop Cells Cancelled Ovalocytes Cancelled Stomatocytes Cancelled Gilbert-Kathryn Bodies Cancelled Echinocytes Cancelled Acanthocytes (Spur) Cancelled Rouleaux Cancelled RBC Agglutinates Cancelled Schistocytes Cancelled Sezary Cell Cancelled Sodium 137 Potassium 3.7 Chloride 108 H Carbon Dioxide 19 L Anion Gap 10 BUN 7 Creatinine 0.46 L Est Cr Clr Drug Dosing Not Reportable Est GFR ( Amer) 143.2 Est GFR (Non-Af Amer) 123.6 BUN/Creatinine Ratio 15.2 Glucose 83 Calcium 9.4 Total Bilirubin 0.5 AST 16 ALT 24 Alkaline Phosphatase 77 Total Protein 7.6 Albumin 4.3 Globulin 3.3 Albumin/Globulin Ratio 1.3 TSH 1.178 HCG, Qual Negative Urine Color Yellow Urine Appearance Clear Urine pH 6.5 Ur Specific [place] 1.013 Urine Protein Trace H Urine Glucose (UA) Negative Urine Ketones 3+ H Urine Blood 3+ H Urine Nitrite Negative Urine Bilirubin Negative Urine Urobilinogen Negative Ur Leukocyte Esterase Trace H Urine WBC (Auto) 0-5 Urine RBC (Auto) 11-20 H U Hyaline Cast (Auto) 0-2 U Epithel Cells (Auto) 3-5 H Urine Bacteria (Auto) None Seen Salicylates < 3.0 L Urine Opiates Screen Neg Ur Methadone, Qual Neg Urine Fentanyl Screen Neg Acetaminophen < 3 L Urine Barbiturates Neg Ur Phencyclidine (PCP) Neg U Amphetamin/Meth Scrn Neg MDMA (Ecstasy) Screen Neg U Benzodiazepines Scrn Neg Ur Cocaine Metabolite Neg U Marijuana (THC) Screen Pos H U Marijuana THC Carboxy Pending Drug Screen Comment Pending Ethyl Alcohol mg/dL < 10.0 SARS-CoV-2, RNA, NAAT Blood Parasites ID Cancelled 11/02/23 Unknown WBC RBC Hgb Hct MCV MCH MCHC RDW Std Deviation RDW Coeff of Marlon Plt Count MPV Immature Gran % (Auto) Neut % (Auto) Lymph % (Auto) [place] % (Auto) Eos % (Auto) Baso % (Auto) Neut # (Auto) Lymph # (Auto) [place] # (Auto) Eos # (Auto) Baso # (Auto) Immature Gran # (Auto) Absolute Nucleated RBC Nucleated RBC % (auto) Neutrophils % (Manual) Band Neutrophils % Lymphocytes % (Manual) Prolymphocyte % Reactive Lymphs % (Man) Monocytes % (Manual) Eosinophils % (Manual) Basophils % (Manual) Metamyelocytes % (Man) Myelocytes % (Man) Promyelocytes % (Man) Blast Cells % (Manual) Plasma Cell % (Manual) Other Cells % Nucleated RBC % Neutrophils # (Manual) Band Neutrophils # Total Absolute Neuts Lymphocytes # (Manual) Prolymphocyte # Reactive Lymphs # Total Abs Lymphocytes Monocytes # (Manual) Eosinophils # (Manual) Basophils # (Manual) Metamyelocytes # (Man) Myelocytes # (Manual) Promyelocytes # (Man) Blast Cells # (Man) Plasma Cell # (Manual) Other Cells # Nucleated RBCs # (Man) Hypersegmented Neuts Hyposegmented Neuts Hypogranular Neuts Large Granular Lymphs # Lrg Granular Lymphs Hairy Cells Smudge Cells Toxic Granulation Toxic Vacuolation Dohle Bodies Ness Rods Platelet Estimate Hypogranular Platelets Giant Platelets Platelet Satelliting RBC Morphology Polychromasia Hypochromasia Poikilocytosis Basophilic Stippling Anisocytosis Microcytosis Macrocytosis Spherocytes Pappenheimer Bodies Sickle Cells Target Cells Tear Drop Cells Ovalocytes Stomatocytes Gilbert-Kathryn Bodies Echinocytes Acanthocytes (Spur) Rouleaux RBC Agglutinates Schistocytes Sezary Cell Sodium Potassium Chloride Carbon Dioxide Anion Gap BUN Creatinine Est Cr Clr Drug Dosing Est GFR ( Amer) Est GFR (Non-Af Amer) BUN/Creatinine Ratio Glucose Calcium Total Bilirubin AST ALT Alkaline Phosphatase Total Protein Albumin Globulin Albumin/Globulin Ratio TSH HCG, Qual Urine Color Urine Appearance Urine pH Ur Specific [place] Urine Protein Urine Glucose (UA) Urine Ketones Urine Blood Urine Nitrite Urine Bilirubin Urine Urobilinogen Ur Leukocyte Esterase Urine WBC (Auto) Urine RBC (Auto) U Hyaline Cast (Auto) U Epithel Cells (Auto) Urine Bacteria (Auto) Salicylates Urine Opiates Screen Ur Methadone, Qual Urine Fentanyl Screen Acetaminophen Urine Barbiturates Ur Phencyclidine (PCP) U Amphetamin/Meth Scrn MDMA (Ecstasy) Screen U Benzodiazepines Scrn Ur Cocaine Metabolite U Marijuana (THC) Screen U Marijuana THC Carboxy Drug Screen Comment Ethyl Alcohol mg/dL SARS-CoV-2, RNA, NAAT NEGATIVE Blood Parasites ID Current Inpatient Medications Current Inpatient Medications: Current Inpatient Medications Acetaminophen (Acetaminophen 325 Mg Tab) 650 mg PO Q4H PRN PRN Reason: Headache or Minor Fever Stop: 12/03/23 02:07 Al Hydrox/Mg Hydrox/Simethicone (Aluminum/Magnesium Susp 30 Ml Udc) 30 ml PO Q4H PRN PRN Reason: GI Upset Stop: 12/03/23 02:07 Bismuth Subsalicylate (Bismuth Subsalicylate Liqd 236 Ml) 15 ml PO PRN PRN PRN Reason: Loose Stool Stop: 12/03/23 02:07 Hydroxyzine HCl (Hydroxyzine Hcl 25 Mg Tab) 50 mg PO HSZ PRN PRN Reason: Insomnia Stop: 12/03/23 02:07 Hydroxyzine HCl (Hydroxyzine Hcl 25 Mg Tab) 50 mg PO Q4H PRN PRN Reason: Anxiety Stop: 12/03/23 02:07 Lorazepam (Lorazepam 2 Mg/1 Ml Vial) 2 mg IM Q8H PRN PRN Reason: Anxiety Stop: 12/03/23 02:15 Lorazepam (Lorazepam 1 Mg Tab) 1 mg PO Q6 PRN PRN Reason: Anxiety Stop: 12/03/23 02:12 Magnesium Hydroxide (Magnesium Hydroxide Susp 30 Ml Udc) 30 ml PO DAILY PRN PRN Reason: Constipation Stop: 12/03/23 02:07 Sertraline HCl (Sertraline Hcl 100 Mg Tablet) 100 mg PO BID MELLISSA Stop: 12/04/23 08:59 Sodium Chloride (Sodium Chloride 0.65% Na Soln 45 Ml ([place])) 1 - 2 sprays NA PRN PRN PRN Reason: Nasal Dryness/Congestion Stop: 12/03/23 02:07
[2023-11-03] MEDS: SERTRALINE HCL 100 MG TABLET PO SCH ×3 (14:27→21:18)
[2023-11-03] MEDS: NICOTINE 21 MG/24 HR TDSY TD SCH (16:45)
[2023-11-03] MEDS: hydrOXYzine HCl 25 MG TAB PO PRN (21:23)
[2023-11-04] MEDS: hydrOXYzine HCl 25 MG TAB PO PRN (06:21)
--- NOTE | 2023-11-04 16:05 | Psychiatric Progress Note ---
Date of Service November 04, 2023 Impression / Recommendations Impression ORION BAIN is a 43-year-old F who currently lives alone, has a history of ADD, and was admitted on 11/03/23 00:56 on a 302 involuntary commitment for suicidal ideation. Patient continues to present significant mood lability. Clarified symptoms and continue to be suspicious for borderline personality disorder. Unclear if home Adderall is effective for attention and concentration deficits. Given past concern for ADHD, past sleep complaints, and increased anxiety we will start clonidine at bedtime. Medication side effects and adverse effects discussed with patient and agreeable. Plan to connect patient with outpatient counseling and case management. Overall, I spent a total of 60 minutes with this case including review of chart records, nursing report, review of lab work, direct evaluation of the patient at bedside, counseling the patient, orders, administering screening instrument and documentation in the electronic health record. (1) Borderline personality disorder: (2) Depression: (3) Difficulty concentrating: Plan 11/04/2023: Dietitian consult. Start clonidine 0.1 mg at bedtime. 11/03/2023: Continue home sertraline Hold home adderall Lorazepam PRN adjusted to 1mg Q6hr PRN for anxiety [place] Screening instrument for Borderline PD Inventory Assets Strengths: family support, financial resources Needs: insight into condition, IOP Suicide Risk Level Suicide Risk Level: Moderate (q15 min suicide checks) Risk Factors Assessment Male: No : Yes Do You Have Access To A Gun?: No Health Problems: Yes Mental Health Diagnoses: Yes Substance Use Disorders: No Previous Attempt: Yes Family History of Suicide: No Previous Psychiatric Hospitalization: Yes Hopelessness: No Protective Factors Assessment Alevism Beliefs: No : No Responsible for Young Children: No Employed: No Stable Relationships: No Supportive Family: Yes Good Rapport with Provider: Yes Absence of Any Risk Factors Above: No Interval History Identifying Information ORION BAIN is a 43-year-old F who currently lives alone, has a history of ADD, and was admitted on 11/03/23 00:56 on a 302 involuntary commitment for suicidal ideation. Chief Complaint "Adderall made me the devil" Review of Systems Sleep Information Total Hours of Sleep: 8.25 Sleep Comments: Admitted overnight Meal Information Percent Meal Consumed - Breakfast: 20 Percent Meal Consumed - Lunch: 100 Percent Meal Consumed - Dinner: 0 Nutrition Comment: Patient asked staff to save her dinner in the fridge. Subjective Subjective Patient was seen & assessed and interval progress reviewed with nursing and social work Overnight received as needed [facility]. Parents dropped off belongings. Patient has been eating small meals due to gastric bypass surgery. Isolative. Sleeping well. Patient requesting case consultant. Prior to interview patient seen leaving a voicemail for mother saying that Adderall made her "the devil" and was on the medication for weight loss. Labile and pleading with mother about giving her "one last shot." Patient reported being on Adderall 20 mg ER twice daily and reports when off of it gains weight. Says that the medication gives her energy. Reports recently with a combination of stress and Adderall it impacted her sleep and did not sleep for prior 4 days well. Patient is labile during the interview and presents a dramatic affect. Patient reports judging herself a lot. Reports body image issues. Says she has a learning disability from childhood however unable to give specific details. Unsure of the benefits of sertraline since initially starting it. Patient reported having troubled relationships with family members, often picking at skin and provides relief, going on gambling and spending sprees and guilty about "stealing" money from her family, having intense emotions, being distrustful of family members and at times boyfriend, feeling chronically empty, and making efforts to avoid feeling abandoned. Physical Exam Mental Examination Appearance: Disheveled Eye Contact: Direct Eye Contact Motor Behavior: Restless Speech: Loud Mood: Euphoric and Tearful Affect: Labile Thought Process: Circumstantial Thought Content: Intact Hallucinations: None Insight: Poor Judgement: Poor Vital Signs (Past 24 Hours) Last Vital Signs Temp 36.8 C 11/04/23 06:24 Pulse 85 11/04/23 06:25 Resp 18 11/04/23 06:24 BP 139/86 11/04/23 06:25 Pulse Ox 99 11/03/23 03:56 O2 Del Method Room Air 11/03/23 03:56 Results & Data ([facility]) Current Inpatient Medications Current Inpatient Medications: Current Inpatient Medications Acetaminophen (Acetaminophen 325 Mg Tab) 650 mg PO Q4H PRN PRN Reason: Headache or Minor Fever Stop: 12/03/23 02:07 Al Hydrox/Mg Hydrox/Simethicone (Aluminum/Magnesium Susp 30 Ml Udc) 30 ml PO Q4H PRN PRN Reason: GI Upset Stop: 12/03/23 02:07 Bismuth Subsalicylate (Bismuth Subsalicylate Liqd 236 Ml) 15 ml PO PRN PRN PRN Reason: Loose Stool Stop: 12/03/23 02:07 Clonidine HCl (Clonidine Hcl 0.1 Mg Tab) 0.1 mg PO HS MELLISSA Stop: 12/04/23 21:59 Hydroxyzine HCl (Hydroxyzine Hcl 25 Mg Tab) 50 mg PO HSZ PRN PRN Reason: Insomnia Stop: 12/03/23 02:07 Last Admin: 11/03/23 21:23 Dose: 50 mg Hydroxyzine HCl (Hydroxyzine Hcl 25 Mg Tab) 50 mg PO Q4H PRN PRN Reason: Anxiety Stop: 12/03/23 02:07 Last Admin: 11/04/23 15:11 Dose: 50 mg Lorazepam (Lorazepam 2 Mg/1 Ml Vial) 2 mg IM Q8H PRN PRN Reason: Anxiety Stop: 12/03/23 02:15 Lorazepam (Lorazepam 1 Mg Tab) 1 mg PO Q6 PRN PRN Reason: Anxiety Stop: 12/03/23 02:12 Magnesium Hydroxide (Magnesium Hydroxide Susp 30 Ml Udc) 30 ml PO DAILY PRN PRN Reason: Constipation Stop: 12/03/23 02:07 Miscellaneous (Remove Nicoderm Patch) 1 each N/A DAILY@[id number] [facility] Stop: 12/04/23 08:58 Last Admin: 11/04/23 09:13 Dose: 1 each Nicotine (Nicotine 21 Mg/24 Hr Tdsy) 1 patch TD QAM [facility] Stop: 12/03/23 16:44 Last Admin: 11/04/23 09:09 Dose: 1 patch Sertraline HCl (Sertraline Hcl 100 Mg Tablet) 100 mg PO BID [facility] Stop: 12/03/23 20:59 Last Admin: 11/04/23 09:09 Dose: 100 mg Sodium Chloride (Sodium Chloride 0.65% Na Soln 45 Ml ([place])) 1 - 2 sprays NA PRN PRN PRN Reason: Nasal Dryness/Congestion Stop: 12/03/23 02:07
[2023-11-04] MEDS: cloNIDine HCL 0.1 MG TAB PO SCH (21:33)
[2023-11-05] MEDS: BISMUTH SUBSALICYLATE LIQD 236 ML PO PRN (06:57)
[2023-11-05 15:47] LABS: Marijuana Quant, GCMS Urine >5000 ng/mL (<5)
--- NOTE | 2023-11-05 16:27 | Psychiatric Progress Note ---
Date of Service November 05, 2023 Impression / Recommendations Impression ORION BAIN is a 43-year-old F who currently lives alone, has a history of ADD, and was admitted on 11/03/23 00:56 on a 302 involuntary commitment for suicidal ideation. Patient presents less mood lability. Appropriate behaviors on the unit. Overfamiliar with peers and staff. Tolerating clonidine at night. Overall, I spent a total of 45 minutes with this case including review of chart records, nursing report, direct evaluation of the patient at bedside, counseling the patient, and documentation in the electronic health record. (1) Borderline personality disorder: (2) Depression: (3) Difficulty concentrating: Plan 11/05/2023: Continue medication and treatment plan. 11/04/2023: Dietitian consult. Start clonidine 0.1 mg at bedtime. 11/03/2023: Continue home sertraline Hold home adderall Lorazepam PRN adjusted to 1mg Q6hr PRN for anxiety [place] Screening instrument for Borderline PD Inventory Assets Strengths: family support, financial resources Needs: insight into condition, IOP Suicide Risk Level Suicide Risk Level: Moderate (q15 min suicide checks) Risk Factors Assessment Male: No : Yes Do You Have Access To A Gun?: No Health Problems: Yes Mental Health Diagnoses: Yes Substance Use Disorders: No Previous Attempt: Yes Family History of Suicide: No Previous Psychiatric Hospitalization: Yes Hopelessness: No Protective Factors Assessment Gnosticist Beliefs: No : No Responsible for Young Children: No Employed: No Stable Relationships: No Supportive Family: Yes Good Rapport with Provider: Yes Absence of Any Risk Factors Above: No Interval History Identifying Information ORION BAIN is a 43-year-old F who currently lives alone, has a history of ADD, and was admitted on 11/03/23 00:56 on a 302 involuntary commitment for suicidal ideation. Chief Complaint "I can think and feel"". Review of Systems Sleep Information Total Hours of Sleep: 7.25 Sleep Comments: Admitted overnight Meal Information Percent Meal Consumed - Breakfast: 75 Percent Meal Consumed - Lunch: 75 Percent Meal Consumed - Dinner: 75 Nutrition Comment: Patient asked staff to save her dinner in the fridge. Subjective Subjective Patient was seen & assessed and interval progress reviewed with treatment team nursing and social work Reports that her parents think she does weed Gummies all the time and this is why she is the way she is. Reports occasional use and denies daily use. Complains about how she feels controlled by father. Feels pressure to have to fix the house. Reports whenever she gets independence it is taken away by parents. Discusses how she gets mixed signals from parents. Reports boyfriend is in [place]. 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 She denies SI. Reports sleeping well. Physical Exam Mental Examination Appearance: Disheveled Eye Contact: Direct Eye Contact Motor Behavior: Restless Speech: Normal Mood: Euphoric Affect: Labile Thought Process: Circumstantial Thought Content: Intact Hallucinations: None Insight: Poor (improving) Judgement: Fair Vital Signs (Past 24 Hours) Last Vital Signs Temp 37.1 C 11/05/23 06:26 Pulse 78 11/05/23 06:26 Resp 18 11/05/23 06:26 BP 122/84 11/05/23 06:26 Pulse Ox 99 11/03/23 03:56 O2 Del Method Room Air 11/03/23 03:56 Results & Data ([facility]) Laboratory Results Laboratory Results - last 24 hr 11/02/23 16:18 U Marijuana THC Carboxy >5000 H Drug Screen Comment SEE NOTE Current Inpatient Medications Current Inpatient Medications: Current Inpatient Medications Acetaminophen (Acetaminophen 325 Mg Tab) 650 mg PO Q4H PRN PRN Reason: Headache or Minor Fever Stop: 12/03/23 02:07 Al Hydrox/Mg Hydrox/Simethicone (Aluminum/Magnesium Susp 30 Ml Udc) 30 ml PO Q4H PRN PRN Reason: GI Upset Stop: 12/03/23 02:07 Bismuth Subsalicylate (Bismuth Subsalicylate Liqd 236 Ml) 15 ml PO PRN PRN PRN Reason: Loose Stool Stop: 12/03/23 02:07 Last Admin: 11/05/23 06:57 Dose: 15 ml Clonidine HCl (Clonidine Hcl 0.1 Mg Tab) 0.1 mg PO HS MELLISSA Stop: 12/04/23 21:59 Last Admin: 11/04/23 21:33 Dose: 0.1 mg Hydroxyzine HCl (Hydroxyzine Hcl 25 Mg Tab) 50 mg PO HSZ PRN PRN Reason: Insomnia Stop: 12/03/23 02:07 Last Admin: 11/03/23 21:23 Dose: 50 mg Hydroxyzine HCl (Hydroxyzine Hcl 25 Mg Tab) 50 mg PO Q4H PRN PRN Reason: Anxiety Stop: 12/03/23 02:07 Last Admin: 11/05/23 06:57 Dose: 50 mg Lorazepam (Lorazepam 2 Mg/1 Ml Vial) 2 mg IM Q8H PRN PRN Reason: Anxiety Stop: 12/03/23 02:15 Lorazepam (Lorazepam 1 Mg Tab) 1 mg PO Q6 PRN PRN Reason: Anxiety Stop: 12/03/23 02:12 Magnesium Hydroxide (Magnesium Hydroxide Susp 30 Ml Udc) 30 ml PO DAILY PRN PRN Reason: Constipation Stop: 12/03/23 02:07 Miscellaneous (Remove Nicoderm Patch) 1 each N/A DAILY@0859 [facility] Stop: 12/04/23 08:58 Last Admin: 11/05/23 08:35 Dose: 1 each Nicotine (Nicotine 21 Mg/24 Hr Tdsy) 1 patch TD QAM MELLISSA Stop: 12/03/23 16:44 Last Admin: 11/05/23 08:33 Dose: 1 patch Sertraline HCl (Sertraline Hcl 100 Mg Tablet) 100 mg PO BID MELLISSA Stop: 12/03/23 20:59 Last Admin: 11/05/23 06:57 Dose: 100 mg Sodium Chloride (Sodium Chloride 0.65% Na Soln 45 Ml ([place])) 1 - 2 sprays NA PRN PRN PRN Reason: Nasal Dryness/Congestion Stop: 12/03/23 02:07 Mental Health & Subst Abuse Tx Therapist Name of Therapist: n/a Senior Solutions Engineer Name of Senior Solutions Engineer: n/a Post Discharge Appointments Primary Care Physician Name Of Family Doctor/PCP: R[facility]ARD [facility] Date of Future Appointment with PCP: 11/14/23 Time of Appointment with PCP: 7:00AM
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
--- NOTE | 2023-11-07 10:22 | Discharge Summary ---
Date of Service November 07, 2023 History of Present Illness Patient reports living by herself in a house her parents bought. Complains that her father visits daily and is very controlling. reports that she "feels trapped". Complains of intense emotions and is labile through the conversation. Says her family refuses to engage in family counseling to resolve problems. Complains that she has always been an outcast in the family and been neglected. She denies current SI. Complains of past depressive episodes with poor sleep, low mood, fair energy. Has difficulty answering other questions about past depressive episodes and we will revisit. Reports past diagnoses of "depression/trauma and ". Reports having nightmares in the past and wakes up distressed. Reports having a difficult childhood where she was neglected compared to her 2 brothers and was often told she was fat and unattractive by family. Denies physical or sexual abuse. Reports brother that has depression and got a nerve stimulator. Reports social alcohol and edible marijuana use; denies regular use. Patient reports she does not like taking the Adderall and she feels better off of it right now. Collateral from recent documentation indicates family had concerned patient has recent lack of sleep and was presenting inappropriate laughter. Patient completed screening instrument for borderline personality disorder and reported having troubled relationships, problems with impulsivity, intense moods, extreme feelings of anger, distrust for other people, chronic feelings of emptiness, loss of identity, and desperate efforts to avoid feeling abandoned. Physical Exam Mental Examination Appearance: Disheveled Eye Contact: Direct Eye Contact Motor Behavior: Unremarkable Speech: Normal Mood: Euthymic Affect: Appropriate and Labile (slightly) Thought Process: Intact Thought Content: Intact Hallucinations: None Insight: Fair (improving) Judgement: Fair Vital Signs (Past 24 Hours) Last Vital Signs Temp 35.4 C L 11/07/23 10:04 Pulse 94 H 11/07/23 10:04 Resp 16 11/07/23 10:04 BP 120/76 11/07/23 10:04 Pulse Ox 94 11/07/23 10:04 O2 Del Method Room Air 11/06/23 06:00 Principal Diagnosis Borderline Personality Disorder Psychiatric Data See daily stay summary. In short, safety was maintained and the patient was cooperative with care. Medication changes included d/c home Adderall, continuing Sertraline, starting Clonidine 0.1mg HS, starting Trazodone 50mg HS PRN and they tolerated this well. Patient presented less labile mood, appeared less distressed, was cooperative on the unit, and presented an improved future outlook. Day of Discharge Assessment Today the patient voices readiness for discharge. They note improvement in mood and deny thoughts to harm self or others. Thoughts remain organized and they are improved from admission. There is no evidence of psychosis. They agree to take mediations as prescribed and keep follow-up appointments. They are stable for discharge to outpatient level of care. Transition of Care Transition Of Care Record: was reviewed with the patient Advance Directives Advance Directives Information Provided: Yes Advance Directives: No Mental Health Advance Directive: No Advance Directives on File: No Living Will: No Power of Director Private Music Therapy Agency: No Advance Directives Reason:: Declines as Mental Health Visit. Risk Factors Assessment Male: No : Yes Do You Have Access To A Gun?: No Health Problems: Yes Mental Health Diagnoses: Yes Substance Use Disorders: No Previous Attempt: Yes Family History of Suicide: No Previous Psychiatric Hospitalization: Yes Hopelessness: No Protective Factors Assessment Spiritism Beliefs: No : No Responsible for Young Children: No Employed: No Stable Relationships: No Supportive Family: Yes Good Rapport with Provider: Yes Absence of Any Risk Factors Above: No Discharge Data Lab Results 11/02/23 11/02/23 11/02/23 13:00 16:18 21:10 WBC Cancelled 13.92 H RBC Cancelled 5.08 Hgb Cancelled 12.9 Hct Cancelled 39.7 MCV Cancelled 78.1 L MCH Cancelled 25.4 MCHC Cancelled 32.5 RDW Std Deviation Cancelled 45.0 RDW Coeff of Marlon Cancelled 16.0 H Plt Count Cancelled 380 MPV Cancelled 9.4 Immature Gran % (Auto) Cancelled 0.4 Neut % (Auto) Cancelled 68.9 Lymph % (Auto) Cancelled 22.5 Stephenson % (Auto) Cancelled 7.3 Eos % (Auto) Cancelled 0.6 Baso % (Auto) Cancelled 0.3 Neut # (Auto) Cancelled 9.60 H Lymph # (Auto) Cancelled 3.13 Stephenson # (Auto) Cancelled 1.02 H Eos # (Auto) Cancelled 0.08 Baso # (Auto) Cancelled 0.04 Immature Gran # (Auto) Cancelled 0.05 Absolute Nucleated RBC Cancelled Nucleated RBC % (auto) Cancelled Neutrophils % (Manual) Cancelled Band Neutrophils % Cancelled Lymphocytes % (Manual) Cancelled Prolymphocyte % Cancelled Reactive Lymphs % (Man) Cancelled Monocytes % (Manual) Cancelled Eosinophils % (Manual) Cancelled Basophils % (Manual) Cancelled Metamyelocytes % (Man) Cancelled Myelocytes % (Man) Cancelled Promyelocytes % (Man) Cancelled Blast Cells % (Manual) Cancelled Plasma Cell % (Manual) Cancelled Other Cells % Cancelled Nucleated RBC % Cancelled Neutrophils # (Manual) Cancelled Band Neutrophils # Cancelled Total Absolute Neuts Cancelled Lymphocytes # (Manual) Cancelled Prolymphocyte # Cancelled Reactive Lymphs # Cancelled Total Abs Lymphocytes Cancelled Monocytes # (Manual) Cancelled Eosinophils # (Manual) Cancelled Basophils # (Manual) Cancelled Metamyelocytes # (Man) Cancelled Myelocytes # (Manual) Cancelled Promyelocytes # (Man) Cancelled Blast Cells # (Man) Cancelled Plasma Cell # (Manual) Cancelled Other Cells # Cancelled Nucleated RBCs # (Man) Cancelled Hypersegmented Neuts Cancelled Hyposegmented Neuts Cancelled Hypogranular Neuts Cancelled Large Granular Lymphs Cancelled # Lrg Granular Lymphs Cancelled Hairy Cells Cancelled Smudge Cells Cancelled Toxic Granulation Cancelled Toxic Vacuolation Cancelled Dohle Bodies Cancelled Ness Rods Cancelled Platelet Estimate Cancelled Hypogranular Platelets Cancelled Giant Platelets Cancelled Platelet Satelliting Cancelled RBC Morphology Cancelled Polychromasia Cancelled Hypochromasia Cancelled Poikilocytosis Cancelled Basophilic Stippling Cancelled Anisocytosis Cancelled Microcytosis Cancelled Macrocytosis Cancelled Spherocytes Cancelled Pappenheimer Bodies Cancelled Sickle Cells Cancelled Target Cells Cancelled Tear Drop Cells Cancelled Ovalocytes Cancelled Stomatocytes Cancelled [place] Bodies Cancelled Echinocytes Cancelled Acanthocytes (Spur) Cancelled Rouleaux Cancelled RBC Agglutinates Cancelled Schistocytes Cancelled Sezary Cell Cancelled Sodium 137 Potassium 3.7 Chloride 108 H Carbon Dioxide 19 L Anion Gap 10 BUN 7 Creatinine 0.46 L Est Cr Clr Drug Dosing Not Reportable Est GFR ( Amer) 143.2 Est GFR (Non-Af Amer) 123.6 BUN/Creatinine Ratio 15.2 Glucose 83 Calcium 9.4 Total Bilirubin 0.5 AST 16 ALT 24 Alkaline Phosphatase 77 Total Protein 7.6 Albumin 4.3 Globulin 3.3 Albumin/Globulin Ratio 1.3 TSH 1.178 HCG, Qual Negative Urine Color Yellow Urine Appearance Clear Urine pH 6.5 Ur Specific Fred 1.013 Urine Protein Trace H Urine Glucose (UA) Negative Urine Ketones 3+ H Urine Blood 3+ H Urine Nitrite Negative Urine Bilirubin Negative Urine Urobilinogen Negative Ur Leukocyte Esterase Trace H Urine WBC (Auto) 0-5 Urine RBC (Auto) 11-20 H U Hyaline Cast (Auto) 0-2 U Epithel Cells (Auto) 3-5 H Urine Bacteria (Auto) None Seen Salicylates < 3.0 L Urine Opiates Screen Neg Ur Methadone, Qual Neg Urine Fentanyl Screen Neg Acetaminophen < 3 L Urine Barbiturates Neg Ur Phencyclidine (PCP) Neg U Amphetamin/Meth Scrn Neg MDMA (Ecstasy) Screen Neg U Benzodiazepines Scrn Neg Ur Cocaine Metabolite Neg U Marijuana (THC) Screen Pos H U Marijuana THC Carboxy >5000 H Drug Screen Comment SEE NOTE Ethyl Alcohol mg/dL < 10.0 SARS-CoV-2, RNA, NAAT Blood Parasites ID Cancelled 11/02/23 Unknown WBC RBC Hgb Hct MCV MCH MCHC RDW Std Deviation RDW Coeff of Marlon Plt Count MPV Immature Gran % (Auto) Neut % (Auto) Lymph % (Auto) Stephenson % (Auto) Eos % (Auto) Baso % (Auto) Neut # (Auto) Lymph # (Auto) Stephenson # (Auto) Eos # (Auto) Baso # (Auto) Immature Gran # (Auto) Absolute Nucleated RBC Nucleated RBC % (auto) Neutrophils % (Manual) Band Neutrophils % Lymphocytes % (Manual) Prolymphocyte % Reactive Lymphs % (Man) Monocytes % (Manual) Eosinophils % (Manual) Basophils % (Manual) Metamyelocytes % (Man) Myelocytes % (Man) Promyelocytes % (Man) Blast Cells % (Manual) Plasma Cell % (Manual) Other Cells % Nucleated RBC % Neutrophils # (Manual) Band Neutrophils # Total Absolute Neuts Lymphocytes # (Manual) Prolymphocyte # Reactive Lymphs # Total Abs Lymphocytes Monocytes # (Manual) Eosinophils # (Manual) Basophils # (Manual) Metamyelocytes # (Man) Myelocytes # (Manual) Promyelocytes # (Man) Blast Cells # (Man) Plasma Cell # (Manual) Other Cells # Nucleated RBCs # (Man) Hypersegmented Neuts Hyposegmented Neuts Hypogranular Neuts Large Granular Lymphs # Lrg Granular Lymphs Hairy Cells Smudge Cells Toxic Granulation Toxic Vacuolation Dohle Bodies Ness Rods Platelet Estimate Hypogranular Platelets Giant Platelets Platelet Satelliting RBC Morphology Polychromasia Hypochromasia Poikilocytosis Basophilic Stippling Anisocytosis Microcytosis Macrocytosis Spherocytes Pappenheimer Bodies Sickle Cells Target Cells Tear Drop Cells Ovalocytes Stomatocytes [place] Bodies Echinocytes Acanthocytes (Spur) Rouleaux RBC Agglutinates Schistocytes Sezary Cell Sodium Potassium Chloride Carbon Dioxide Anion Gap BUN Creatinine Est Cr Clr Drug Dosing Est GFR ( Amer) Est GFR (Non-Af Amer) BUN/Creatinine Ratio Glucose Calcium Total Bilirubin AST ALT Alkaline Phosphatase Total Protein Albumin Globulin Albumin/Globulin Ratio TSH HCG, Qual Urine Color Urine Appearance Urine pH Ur Specific Fred Urine Protein Urine Glucose (UA) Urine Ketones Urine Blood Urine Nitrite Urine Bilirubin Urine Urobilinogen Ur Leukocyte Esterase Urine WBC (Auto) Urine RBC (Auto) U Hyaline Cast (Auto) U Epithel Cells (Auto) Urine Bacteria (Auto) Salicylates Urine Opiates Screen Ur Methadone, Qual Urine Fentanyl Screen Acetaminophen Urine Barbiturates Ur Phencyclidine (PCP) U Amphetamin/Meth Scrn MDMA (Ecstasy) Screen U Benzodiazepines Scrn Ur Cocaine Metabolite U Marijuana (THC) Screen U Marijuana THC Carboxy Drug Screen Comment Ethyl Alcohol mg/dL SARS-CoV-2, RNA, NAAT NEGATIVE Blood Parasites ID Hospital Course (1) Borderline personality disorder: (2) Depression: (3) Difficulty concentrating: Plan 11/05/2023: Continue medication and treatment plan. 11/04/2023: Dietitian consult. Start clonidine 0.1 mg at bedtime. 11/03/2023: Continue home sertraline Hold home adderall Lorazepam PRN adjusted to 1mg Q6hr PRN for anxiety Brown Screening instrument for Borderline PD Mental Health & Subst Abuse Tx Therapist Name of Therapist: [facility] Appointment Comment: [email or web address] Director Global Intelligence Name of Director Global Intelligence: n/a Post Discharge Appointments Primary Care Physician Name Of Family Doctor/PCP: RICHARD Hutchinson [facility] Date of Future Appointment with PCP: 11/14/23 Time of Appointment with PCP: 7:00AM Discharge Plan Discharge Items Patient Disposition: Home - Self-Care Reason For Visit: MOOD DISORDER Discharge Diagnosis: Borderline Personality Disorder Depression Difficulty concentrating Condition on Discharge: Fair Activity: Resume your previous activity Non-emergency contact: Primary Care Provider and Psychiatrist Call non-emergency contact if: you have any medication questions Follow-up/Referrals: Alexus Dumas MD [Primary Care Provider] - Diet: Regular Addtl Attending Provider Instructions: -Continue Sertraline 100mg twice daily -Continue Clonidine 0.1mg HS -Continue Trazodone 50mg NEEDED at bedtime -Continue Clonazepam 0.5mg orally disintegrating NEEDED at bedtime Pending Studies at Discharge: No Stand-Alone Forms: My [employer], Smoking Cessation Medications and DC Order Prescriptions: New clonidine HCl 0.1 mg Tablet 0.1 mg PO HS Qty: 30 0RF trazodone 50 mg tablet 50 mg PO HS PRN (Reason: sleep) Qty: 30 0RF clonazepam 0.5 mg tablet,disintegrating 0.5 mg PO HS PRN (Reason: insomnia) Qty: 10 0RF Rx Instructions: administer 30 minutes before bedtime Continued albuterol sulfate 90 mcg/actuation HFA aerosol inhaler 2 inh INH 6XD PRN (Reason: shortness of breath or wheezing) Qty: 8.5 1RF omeprazole 20 mg capsule,delayed release(DR/EC) 20 mg PO DAILY sertraline 100 mg tablet 200 mg PO DAILY Discontinued dextroamphetamine-amphetamine 20 mg capsule,extended release 24hr 40 mg PO DAILY Discharge Orders: Discharge Order (Routine); Ordered 11/07/23 Ordered By: Art Garcia Admission Data Admit Date/Time: 11/03/23 00:56 Attending Provider: Art Garcia Admit Provider: Art Garcia Primary Care Provider: Alexus Dumas Other Interventions: Discharge Summary Assessment (RN) Last Done: 11/07/23 10:04 PSY Interdisciplinary Discharge Planning Last Done: 11/07/23 09:22 Coding Level of Care Code 09450 D/C day mgmt 30 min or < History Expanded Problem Focused Exam Expanded Problem Focused Medical Decision Making Moderate Complexity Diagnoses Borderline personality disorder F60.3 Depression F32.A Difficulty concentrating R41.84
== END 2023-11-07 10:51 | disposition home or self-care (01) | DRG 883 ==
LOC: ED 10:44 → 3S 11-03 00:56 → ED 11-03 01:31